=== PATIENT | male | born 1985 | race Caucasian/White ===

== ENCOUNTER 2016-08-08 19:05 | Inpatient (IN) | payer BC ==
[~2016-08-08] VITALS: Ht 167.6 cm; Wt 72.1 kg
[2016-08-08] MEDS ORDERED: NEB-ALBUTEROL 2.5 MG/3 ML INH ONE (21:16)
[2016-08-08] MEDS ORDERED: DUONEB INH ONE ×2 (21:18)
[2016-08-08] MEDS ORDERED: SODIUM CHLORIDE 0.9% 1,000 ML ONE ×2 (21:25→22:53)
[2016-08-08] MEDS ORDERED: METHYLPRED SOD SUCC 125 MG/2 ML VIAL ONE (21:26)
[2016-08-08] MEDS ORDERED: DEXTROSE 50% 50 ML ONE (21:29)
[2016-08-08] MEDS ORDERED: SODIUM CHLORIDE 0.9% 100 ML IV ONE (22:53)
[2016-08-08] MEDS ORDERED: CEFTRIAXONE 1 GM VIAL ONE (22:53)
[2016-08-09] VITALS (7 sets, daily range): BP systolic 101–132; RESP 18–22; TEMP 98.1–99.1; Ht 167.6 cm; Wt 72.1 kg
[2016-08-09] MEDS ORDERED: SALINE FLUSH 10 ML FLUSH PRN (00:05)
[2016-08-09] MEDS: METHYLPRED SOD SUCC 125 MG/2 ML VIAL IV SCH ×2 (00:35→09:22)
[2016-08-09] MEDS ORDERED: GLUCAGON 1 MG VIAL IM PRN (01:00)
[2016-08-09] MEDS ORDERED: DEXTROSE 50% SYRINGE 50 ML IV PRN (01:00)
[2016-08-09] MEDS ORDERED: Flu Vaccine Quadrivalent 60 MCG/0.5 ML IM.VACC ONE (01:10)
[2016-08-09] MEDS: NEB-ALBUTEROL 5 MG/ML 20 ML INH SCH ×3 (01:12→03:00)
[2016-08-09] MEDS: SODIUM CHLORIDE 0.9% FLUSH BAG 500 ML IV SCH (06:32)
[2016-08-09] MEDS: NEB-ATROVENT INH PRN ×5 (06:51→23:01)
[2016-08-09] MEDS: NEB-ALBUTEROL 2.5 MG/3 ML INH PRN ×5 (06:51→23:02)
[2016-08-09] MEDS: SALINE FLUSH 10 ML FLUSH SCH ×2 (09:21→21:03)
[2016-08-09] MEDS: CEFTRIAXONE 1 GM in SODIUM CHLORIDE 0.9% 50 ML IV SCH (09:21)
[2016-08-09] MEDS: ENOXAPARIN 40 MG/0.4 ML SYR SUBQ SCH (09:22)
[2016-08-09] MEDS: AZITHROMYCIN 500 MG in SODIUM CHLORIDE 0.9% 250 ML IV SCH (10:12)
[2016-08-09] MEDS: LEVETIRACETAM 500 MG TAB PO SCH ×2 (13:11→21:03)
[2016-08-09] MEDS ORDERED: ACETAMINOPHEN 325 MG TAB PO PRN (13:25)
[2016-08-09] MEDS: NICOTINE 14 MG/24 HR TDSY TRANSDERM SCH (16:26)
[2016-08-09] MEDS ORDERED: LEVEMIR INSULIN SUBQ SCH (21:00)
[2016-08-10] MEDS: NEB-ATROVENT INH PRN ×3 (02:33→10:55)
[2016-08-10] MEDS: NEB-ALBUTEROL 2.5 MG/3 ML INH PRN ×3 (02:33→10:55)
[2016-08-10 03:35] VITALS: BP_SYST 122; RESP 21; TEMP 98.1
[2016-08-10] MEDS: SODIUM CHLORIDE 0.9% FLUSH BAG 500 ML IV SCH (05:15)
[2016-08-10 07:44] VITALS: BP_SYST 94; RESP 20; TEMP 98.3
[2016-08-10] MEDS: LEVETIRACETAM 500 MG TAB PO SCH (08:16)
[2016-08-10] MEDS: NICOTINE 14 MG/24 HR TDSY TRANSDERM SCH (08:17)
[2016-08-10] MEDS: ENOXAPARIN 40 MG/0.4 ML SYR SUBQ SCH (08:17)
[2016-08-10] MEDS: CEFTRIAXONE 1 GM in SODIUM CHLORIDE 0.9% 50 ML IV SCH (08:18)
[2016-08-10] MEDS: SALINE FLUSH 10 ML FLUSH SCH (08:19)
[2016-08-10] MEDS ORDERED: PREDNISONE 20 MG TAB PO SCH (09:00)
[2016-08-10] MEDS: AZITHROMYCIN 500 MG in SODIUM CHLORIDE 0.9% 250 ML IV SCH (10:35)
[2016-08-10 11:37] VITALS: BP_SYST 114; RESP 18; TEMP 98.5
[2016-08-10 15:02] VITALS: BP_SYST 114; RESP 18; TEMP 98.5
[2016-08-10 15:08] VITALS: BP_SYST 120; RESP 18; TEMP 98.8
[2016-08-11] MEDS ORDERED: AZITHROMYCIN 250 MG TAB PO SCH (09:00)
== END 2016-08-10 15:49 | disposition home or self-care (01) | DRG 193 ==
LOC: ENRESERVDT → ENRESERVTM → ENRESERV → ER 19:05 → ENPENDDIS 22:49 → EMR 22:49 → PCU2 08-09 00:04
PROVIDERS: ADMIT Internal Medicine; ATTEND Internal Medicine
DX: J18.9 Pneumonia, unspecified organism (principal); J96.01 Acute respiratory failure with hypoxia; J45.901 Unspecified asthma with (acute) exacerbation; G40.909 Epilepsy, unspecified, not intractable, without status epilepticus; R22.2 Localized swelling, mass and lump, trunk; F17.200 Nicotine dependence, unspecified, uncomplicated; E11.9 Type 2 diabetes mellitus without complications; Z79.4 Long term (current) use of insulin; Z79.51 Long term (current) use of inhaled steroids
CPT/HCPCS: 36415; 36600; 71010; 71250; 80048; 80051; 80053; 82009; 82330; 82553; 82803; 82947; 83605; 83880; 84484; 85025; 86701; 87040; 87278; 87299; 87804; 93005; 94640; 94644; 94799; 99222; 99239